=== PATIENT | male | born 1990 | race Caucasian/White ===

== ENCOUNTER 2017-03-21 11:19 | Emergency (ER) | payer OTHER ==
[2017-03-21 11:24] VITALS: RESP 16; TEMP 97.9
--- NOTE | 2017-03-21 11:30 | EDPHY ---
H & P Stated Complaint: Migraine, n/v, felt like he was going to pass out HPI/ROS: CHIEF COMPLAINT: Migraine, nausea, lightheadedness HISTORY OF PRESENT ILLNESS: This patient is a healthy 26 year old male with history of ocular migraines complaining of migraine, nausea, and lightheadedness onset this morning. The patient reports he gets ocular migraines sporadically every few months, but this episode has developed further symptoms. He reports bifrontal pain, nausea, and vomiting every 20 minutes. He states he became lightheaded as well and felt his breathing was labored, and he was concerned about passing out. He states he has had nausea associated with migraines in the past, but not to the extent he feels today. He denies fever, neck pain or stiffness, abdominal pain,diarrhea, or other associated symptoms. He denies recent illness or trauma. He has been treated for his migraines in the past, but is not currently taking any medication other than ibuprofen or naproxen sodium. He reports taking Aleve this morning at the onset of his symptoms. He has not had cranial imaging studies. REVIEW OF SYSTEMS: A ten point review of systems was performed and is negative with the exception of the items mentioned in the HPI. - Personal History Current Tetanus Diphtheria and Acellular Pertussis (TDAP): Yes - Medical/Surgical History PMH: Migraine headaches, ocular migraines. 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 Nonsmoker, denies alcohol and illicit drug use. - Physical Exam Exam: General Appearance: Alert. Vital signs reviewed. Eyes: Pupils equal and round, no conjunctival injection, no discharge. Anicteric. ENT, Mouth: Mucous membranes are moist, no oropharyngeal erythema or edema. Neck: No lymphadenopathy, supple. No meningeal signs. Respiratory: Lungs are clear to auscultation; no wheezes, rales, or rhonchi. Cardiovascular: Regular rate and rhythm; no murmur, rub, or gallop. Gastrointestinal: Abdomen is soft and nontender, no masses or organomegaly, bowel sounds normal. Skin: Warm and dry, no rashes on exposed skin, normal color. Back: Nontender to palpation over the thoracolumbar spine. No CVAT. Extremities: No lower extremity edema, no calf tenderness or swelling. Neurological: Alert and oriented. Moving all four extremities easily and equally. Cranial nerves II through XII are examined and are intact (visual acuity not tested). Strength is 5 over 5 bilaterally with testing of all major motor groups. Sensation is intact to light touch over all 4 extremities. Deep tendon reflexes are 2+ in the biceps and knees bilaterally. Gait is normal. [id number] is performed accurately. Psychiatric: Normal affect. Constitutional: Initial Vital Signs Temperature (C) 36.6 C 03/21/17 11:20 Heart Rate 78 03/21/17 11:20 Respiratory Rate 16 03/21/17 11:20 Blood Pressure 112/70 03/21/17 11:20 O2 Sat (%) 98 03/21/17 11:20 O2 Delivery Mode Room Air Allergies/Adverse Reactions: No Known Allergies Allergy (Unverified 03/21/17 11:25) Home Medications: Medication Instructions Recorded NK [No Known Home Meds] 03/21/17 Medical Decision Making ED Course/Re-evaluation: This patient is a 26 year old male presenting with bifrontal headache, nausea, and multiple episodes of vomiting this morning. On exam, he is neurologically intact, and exam is otherwise unremarkable. Plan for fluids, 15mg IV Ketorolac, 25mg IV Benadryl, and 10mg IV Reglan for relief of symptoms. Re-evaluated at 1:15 p.m.. His headache is entirely gone. He feels well enough to return home. He remains with normal neurologic exam. This is most likely a migraine headache. We discussed neuro-imaging but he prefers to defer further work-up for followup if warranted. He is referred to PCP. No fever or meningeal signs--I do not suspect meningitis. The onset and description of his headache is consistent with migraine, albeit worse than his previous migraines. I doubt subarachnoid hemorrhage or other intracranial bleed. This headache is not suggestive of tension headache. - Data Points Medications Given: Discontinued Medications Diphenhydramine HCl (Benadryl Injection) 25 mg IVP EDNOW ONE Stop: 03/21/17 11:46 Last Admin: 03/21/17 12:00 Dose: 25 mg Sodium Chloride (Ns) 1,000 mls @ 0 mls/hr IV ONCE ONE PRN Reason: Wide Open Stop: 03/21/17 11:51 Last Admin: 03/21/17 12:09 Dose: 1,000 mls Ketorolac Tromethamine (Toradol) 15 mg IVP EDNOW ONE Stop: 03/21/17 11:46 Last Admin: 03/21/17 12:00 Dose: 15 mg Metoclopramide HCl (Reglan Injection) 10 mg IVP EDNOW ONE Stop: 03/21/17 11:46 Last Admin: 03/21/17 12:00 Dose: 10 mg Departure - Departure Disposition: Home, Routine, Self-Care Clinical Impression: Migraine Qualifiers: Migraine type: with aura Status migrainosus presence: without status migrainosus Intractability: not intractable Qualified Code(s): G43.109 - Migraine with aura, not intractable, without status migrainosus Condition: Good Instructions: Migraine Headache (ED), Ocular Migraine (ED) Additional Instructions: 1. Follow up with a primary care physician for continued management of your migraines. We have referred you to our primary care provider vice president corporate communications here in [place] so you can establish care. 2. You make take ibuprofen or Tylenol as needed for pain as directed below. Adult Pain & Fever Control: We recommend Acetaminophen (Tylenol) and Ibuprofen (Motrin,Advil) for pain and fever control. When fever is high or pain severe, both drugs can be used at the same time, but at different intervals. Please note the time differences. Your dose is: Acetaminophen 650mg every 4 to 6 hours Ibuprofen 400mg every 6-8 hours with food Note: do not take Acetaminophen with Hydrocodone (Vicodin, Lortab) or Oycodone (Percocet). These medications also contain Acetaminophen. No more than 3000mg of Acetaminophen should be taken in 24 hours (for an adult). Referrals: Clarice Tariq MD [Medical Doctor] - As per Instructions Report Scribed for: Angie Tran Report Scribed by: Karoline No Date of Report: 03/21/17 Time of Report: 11:38 Physician Review and Approval Statement: 03/21/17 11:30 Portions of this note were transcribed by the medical librarian. I, Dr. Angie Tran, personally performed the history, physical exam, and medical decision- making; and confirmed the accuracy of the information in the transcribed note.
[2017-03-21] MEDS ORDERED: KETOROLAC 30 MG/1 ML SDV IVP ONE (11:45)
[2017-03-21] MEDS ORDERED: METOCLOPRAMIDE 10 MG/2 ML VIAL IVP ONE (11:45)
[2017-03-21] MEDS ORDERED: NS 1,000 ML IV ONE (11:50)
[2017-03-21] MEDS ORDERED: fentaNYL 100 MCG/2 ML INJ ONE (13:31)
[2017-03-21 13:32] VITALS: BP 126/61; PULSE 71; O2SAT 99
== END 2017-03-21 13:32 | disposition home or self-care (01) ==
DX: G43.109 Migraine with aura, not intractable, without status migrainosus (principal); R11.10 Vomiting, unspecified
CPT/HCPCS: 96374; J1200; J1885; J2765; J3010